=== PATIENT | male | born 1945 | race Caucasian/White ===

== ENCOUNTER → 2017-10-01 | Outpatient (CLI) | payer MEDICARE, BC ==
[2017-10-01 10:47] LABS: BASO % 0.3 % (0.0-1.0); EOS # 0.3 10*3/uL (0.0-0.4); EOS % 2.3 % (1.0-4.0); HEMATOCRIT 33.2 % (42.0-52.0); HEMOGLOBIN 10.5 g/dl (14.0-18.0); LYMPH # 2.8 10*3/uL (1.3-4.4); MEAN CORPUSCULAR HGB 29.4 pg (27.0-31.0); MEAN CORPUSCULAR HGB CONC 31.6 g/dl (33.0-37.0); MEAN PLATELET VOLUME 10.9 fl (9.6-12.3); MONO # 1.2 10*3/uL (0.1-1.0); MONO % 11.2 % (3.0-9.0); NEUT # 6.5 10*3/uL (2.3-7.9); PLATELET COUNT AUTOMATED 342 10*3/uL (130-400); RED BLOOD COUNT 3.57 10*6/uL (4.50-5.90); RED CELL DISTRI WIDTH 12.7 % (0-14.5); WHITE BLOOD COUNT 10.9 10*3/uL (4.8-10.8)
== END | disposition home or self-care (01) ==
LOC: LAB 10:00 → US 10:30
PROVIDERS: Orthopaedic Surgery
DX: R60.0 Localized edema (principal); D64.9 Anemia, unspecified

== ENCOUNTER → 2023-10-16 | Outpatient (CLI) | payer MEDICARE, BC | END | disposition home or self-care (01) | LOC: LAB 14:49 | PROVIDERS: ATTEND Urology | DX: N40.1 Benign prostatic hyperplasia with lower urinary tract symptoms (principal) ==

== ENCOUNTER → 2023-10-27 | Outpatient (CLI) | payer MEDICARE, BC | END | disposition home or self-care (01) | LOC: US 13:58 | PROVIDERS: ATTEND Orthopaedic Surgery | DX: M17.11 Unilateral primary osteoarthritis, right knee (principal); I42.9 Cardiomyopathy, unspecified; I27.9 Pulmonary heart disease, unspecified ==

== ENCOUNTER 2023-12-27 20:03 | Emergency (ER) | payer MEDICARE, BC ==
[~2023-12-27] VITALS: Ht 167.6 cm; Wt 86.2 kg
[2023-12-27] MEDS ORDERED: SODIUM CHLORIDE 0.9% 1,000 ML IV ONE (20:40)
[2023-12-27 20:57] LABS: BASO % 0.6 % (0.0-1.0); EOS # 0.2 10*3/uL (0.0-0.4); EOS % 3.4 % (1.0-4.0); LYMPH # 1.5 10*3/uL (1.3-4.4); LYMPH % 29.6 % (27.0-41.0); MEAN CELL VOLUME 94.1 fl (80.0-94.0); MEAN CORPUSCULAR HGB 30.2 pg (27.0-31.0); MEAN CORPUSCULAR HGB CONC 32.1 g/dl (33.0-37.0); MEAN PLATELET VOLUME 11.2 fl (9.6-12.3); MONO # 0.8 10*3/uL (0.1-1.0); NEUT # 2.5 10*3/uL (2.3-7.9); NEUT % 48.4 % (47.0-73.0); PLATELET COUNT AUTOMATED 149 10*3/uL (130-400); RED BLOOD COUNT 4.04 10*6/uL (4.50-5.90); RED CELL DISTRI WIDTH 13.5 % (0-14.5); WHITE BLOOD COUNT 5.1 10*3/uL (4.8-10.8)
[2023-12-27 21:13] LABS: ACT PARTIAL THROMBO TIME 29.2 SECONDS (20.0-32.1)
[2023-12-27 21:14] LABS: ALKALINE PHOSPHATASE 29 U/L (46-116); BUN 10 mg/dl (9-23); CHLORIDE 106 mmol/L (98-107); POTASSIUM 4.1 mmol/L (3.4-5.1); SGPT/ALT 21 U/L (5-49)
[2023-12-27] MEDS ORDERED: Ketorolac Tromethamine 15 MG/ML VIAL IV ONE (22:05)
[2023-12-27 22:14] LABS: BILIRUBIN 1+ (Negative); BLOOD Negative (Negative); CLARITY Clear (Clear); COLOR Dark Yellow (Yellow); GLUCOSE Negative (Negative); KETONE 1+ (Negative); LEUKO ESTERASE Negative (Negative); NITRITE Negative (Negative); PH 5.5 (4.5-8.0); SPECIFIC GRAVITY >= 1.030 (1.001-1.030)
[2023-12-27] MEDS ORDERED: Ondansetron4 MG SL (23:32)
== END 2023-12-27 23:45 | disposition home or self-care (01) ==
LOC: ED 20:03
PROVIDERS: Internal Medicine
DX: E86.0 Dehydration (principal); Z20.822 Contact with and (suspected) exposure to COVID-19; R50.9 Fever, unspecified; R53.1 Weakness; R06.02 Shortness of breath; Z88.5 Allergy status to narcotic agent; I50.9 Heart failure, unspecified; I48.91 Unspecified atrial fibrillation; Z98.890 Other specified postprocedural states

== ENCOUNTER → 2024-02-20 | Outpatient (CLI) | payer MEDICARE, BC ==
[~2024-02-20] MED LIST: Ondansetron4 MG SL
[2024-02-20 11:29] LABS: BASO # 0.1 10*3/uL (0.0-0.1); BASO % 0.6 % (0.0-1.0); EOS # 0.6 10*3/uL (0.0-0.4); EOS % 6.9 % (1.0-4.0); HEMATOCRIT 38.6 % (42.0-52.0); LYMPH # 3.8 10*3/uL (1.3-4.4); LYMPH % 40.6 % (27.0-41.0); MEAN CELL VOLUME 90.4 fl (80.0-94.0); MEAN CORPUSCULAR HGB 30.2 pg (27.0-31.0); MEAN CORPUSCULAR HGB CONC 33.4 g/dl (33.0-37.0); MEAN PLATELET VOLUME 11.3 fl (9.6-12.3); MONO # 0.9 10*3/uL (0.1-1.0); MONO % 9.8 % (3.0-9.0); NEUT # 3.8 10*3/uL (2.3-7.9); NEUT % 41.1 % (47.0-73.0); PLATELET COUNT AUTOMATED 196 10*3/uL (130-400); RED BLOOD COUNT 4.27 10*6/uL (4.50-5.90); RED CELL DISTRI WIDTH 14.1 % (0-14.5); WHITE BLOOD COUNT 9.3 10*3/uL (4.8-10.8)
[2024-02-20 11:54] LABS: ALKALINE PHOSPHATASE 25 U/L (46-116); BUN 11 mg/dl (9-23); CHLORIDE 106 mmol/L (98-107); POTASSIUM 4.1 mmol/L (3.4-5.1); SGPT/ALT 11 U/L (5-49); TOTAL PROTEIN 6.3 gm/dL (6.0-8.0)
== END | disposition home or self-care (01) ==
LOC: LAB 10:57
PROVIDERS: ATTEND Nurse Practitioner Family
DX: E29.1 Testicular hypofunction (principal); N40.1 Benign prostatic hyperplasia with lower urinary tract symptoms

== ENCOUNTER 2025-03-12 18:34 | Inpatient (IN) | payer MEDICARE, BC ==
[~2025-03-12] VITALS: Ht 167.6 cm; Wt 89.2 kg
[2025-03-12 18:44] VITALS: BP 129/63
[2025-03-12 20:41] VITALS: BP 143/71
[2025-03-12 21:51] LABS: BUN 14 mg/dl (9-23)
[2025-03-12 23:44] LABS: MEAN CELL VOLUME 90.7 fl (80.0-94.0); MEAN CORPUSCULAR HGB 28.7 pg (27.0-31.0); MEAN PLATELET VOLUME 12.2 fl (9.6-12.3); NUCLEATED RED BLOOD CELL 0.0 % (0.0-0.0); NUCLEATED RED BLOOD CELL 0.0 10*3/uL (0.0-0.0); PLATELET COUNT AUTOMATED 207 10*3/uL (130-400); RED CELL DISTRI WIDTH 14.5 % (0-14.5)
[2025-03-12 23:53] LABS: MANUAL DIFF REFLEX YES
[2025-03-13 00:01] LABS: BILIRUBIN Negative (Negative); BLOOD 1+ (Negative); CLARITY Cloudy (Clear); COLOR Dark Yellow (Yellow); KETONE 1+ (Negative); LEUKO ESTERASE 3+ (Negative); NITRITE Negative (Negative); PH 6.0 (4.5-8.0); SPECIFIC GRAVITY 1.020 (1.001-1.030); UROBILINOGEN 1.0 E.U./dl (0.0-1.0)
[2025-03-13 00:06] LABS: PLATELET SUFFICIENCY NORMAL (NORMAL)
[2025-03-13 00:10] LABS: BACTERIA 2+; RBC 21-30 rbc/hpf (0-2); WBC TNTC wbc/hpf (0-5)
[2025-03-13] MEDS ORDERED: SODIUM CHLORIDE 0.9% 1,000 ML IV SCH (00:20)
[2025-03-13] MEDS ORDERED: CARVEDILOL12.5 MG PO (01:02)
[2025-03-13] MEDS ORDERED: ENTRESTO 49 MG1 EACH PO (01:03)
[2025-03-13] MEDS ORDERED: Depakote500 MG PO (01:05)
[2025-03-13] MEDS ORDERED: SERTRALINE HYDR25 MG PO (01:06)
[2025-03-13] MEDS ORDERED: ELIQUIS5 M1 PO (01:06)
[2025-03-13] MEDS ORDERED: VESICARE10 MG PO (01:07)
[2025-03-13] MEDS ORDERED: PREDNISOLONE ACE5 M5 OP (01:08)
[2025-03-13] MEDS ORDERED: Ondansetron Hydrochloride 4 MG/2 ML VIAL IV PRN (02:10)
[2025-03-13] MEDS ORDERED: BISACODYL 5 MG TAB PO PRN (02:10)
[2025-03-13] MEDS ORDERED: BISACODYL 10 MG SUPP R PRN (02:10)
[2025-03-13] MEDS ORDERED: ACETAMINOPHEN 325 MG TAB PO PRN (02:10)
[2025-03-13] MEDS ORDERED: ACETAMINOPHEN 650 MG SUPP R PRN (02:10)
[2025-03-13 05:19] LABS: VITAMIN D, 25-HYDROXY 36.8 ng/mL (30-100)
[2025-03-13 05:20] LABS: BUN 14 mg/dl (9-23); FREE T4 1.08 ng/dl (0.89-1.76); LDL CHOLESTEROL 74 mg/dL (9-159)
[2025-03-13 05:22] LABS: SGPT/ALT < 7 U/L (5-49)
[2025-03-13 05:58] LABS: BASO # 0.0 10*3/uL (0.0-0.1); BASO % 0.2 % (0.0-1.0); EOS # 0.0 10*3/uL (0.0-0.4); EOS % 0.1 % (1.0-4.0); MEAN CELL VOLUME 90.6 fl (80.0-94.0); MEAN CORPUSCULAR HGB 28.7 pg (27.0-31.0); MEAN PLATELET VOLUME 12.1 fl (9.6-12.3); MONO # 1.4 10*3/uL (0.1-1.0); MONO % 9.0 % (3.0-9.0); NEUT # 11.1 10*3/uL (2.3-7.9); NEUT % 70.7 % (47.0-73.0); NUCLEATED RED BLOOD CELL 0.0 % (0.0-0.0); NUCLEATED RED BLOOD CELL 0.0 10*3/uL (0.0-0.0); PLATELET COUNT AUTOMATED 180 10*3/uL (130-400); RED CELL DISTRI WIDTH 14.6 % (0-14.5)
[2025-03-13 09:00] VITALS: BP 147/62
[2025-03-13] MEDS ORDERED: APIXABAN 5 MG TAB PO SCH (10:00)
[2025-03-13] MEDS ORDERED: CARVEDILOL 12.5 MG TAB PO SCH (10:00)
[2025-03-13] MEDS ORDERED: SACUBITRIL/VALSARTAN 49 MG-51 MG TABLET PO SCH (10:00)
[2025-03-13] MEDS ORDERED: DIVALPROEX ER 500 MG TAB PO SCH (10:00)
[2025-03-13 12:00] VITALS: BP 129/69
[2025-03-13] MEDS ORDERED: MED. FROM HOME 1 EACH EA OPH SCH ×2 (14:00→18:00)
[2025-03-13] MEDS ORDERED: PREDNISOLONE ACETATE 1% OP SCH ×3 (14:00→22:00)
[2025-03-13 16:00] VITALS: BP 129/65
[2025-03-13 20:00] VITALS: BP 142/60
[2025-03-14] VITALS: BP 125/65; BP 149/66
[2025-03-14 06:37] LABS: MEAN CELL VOLUME 91.0 fl (80.0-94.0); MEAN CORPUSCULAR HGB 28.5 pg (27.0-31.0); MEAN PLATELET VOLUME 11.7 fl (9.6-12.3); NUCLEATED RED BLOOD CELL 0.0 % (0.0-0.0); NUCLEATED RED BLOOD CELL 0.0 10*3/uL (0.0-0.0); PLATELET COUNT AUTOMATED 199 10*3/uL (130-400); RED CELL DISTRI WIDTH 14.5 % (0-14.5)
[2025-03-14 06:38] LABS: MANUAL DIFF REFLEX YES
[2025-03-14 07:07] LABS: PLATELET SUFFICIENCY NORMAL (NORMAL)
[2025-03-14 07:10] LABS: BUN 14 mg/dl (9-23)
[2025-03-14 08:00] VITALS: BP 129/56
[2025-03-14 12:00] VITALS: BP 125/65
[2025-03-14 16:09] VITALS: BP 129/67
[2025-03-14 20:00] VITALS: BP 144/74
[2025-03-15] VITALS: BP 145/73
[2025-03-15 08:00] VITALS: BP 152/77
[2025-03-15] MEDS ORDERED: OMNICEF300 MG PO (11:23)
== END 2025-03-15 15:15 | disposition home or self-care (01) | DRG 871 ==
LOC: ED 18:34 → EDHOLD 03-13 00:37 → 5E 03-13 00:37
PROVIDERS: Emergency Medicine; Student in an Organized Health Care Education/Training Program; ADMIT Internal Medicine; ATTEND Internal Medicine
DX: A41.9 Sepsis, unspecified organism (principal); G93.41 Metabolic encephalopathy; N39.0 Urinary tract infection, site not specified; E44.0 Moderate protein-calorie malnutrition; D64.9 Anemia, unspecified; I50.9 Heart failure, unspecified; R73.9 Hyperglycemia, unspecified; I48.91 Unspecified atrial fibrillation; G40.909 Epilepsy, unspecified, not intractable, without status epilepticus; G47.33 Obstructive sleep apnea (adult) (pediatric); I11.0 Hypertensive heart disease with heart failure; Z96.652 Presence of left artificial knee joint; R31.9 Hematuria, unspecified; Z96.1 Presence of intraocular lens; Z98.42 Cataract extraction status, left eye; Z98.41 Cataract extraction status, right eye; Z95.0 Presence of cardiac pacemaker; Z87.891 Personal history of nicotine dependence; Z88.8 Allergy status to other drugs, medicaments and biological substances; Z82.49 Family history of ischemic heart disease and other diseases of the circulatory system; Z82.5 Family history of asthma and other chronic lower respiratory diseases; Z68.31 Body mass index [BMI] 31.0-31.9, adult